=== PATIENT | female | born 1995 | race Caucasian/White ===

== ENCOUNTER → 2021-05-25 | Outpatient (CLI) | payer OTHER ==
[~2021-05-25] MED LIST: COLACE100 MG PO; IBUPROFEN600 MG PO; NORCO 5-325 TA1 EACH PO; PRAMET FA TAB1 EA PO; PREVACID15 MG PO; TIROSINT50 MCG PO; VICODIN 5-3001 EACH PO
== END ==
LOC: EXRD 09:58
DX: R10.9 Unspecified abdominal pain (principal); K76.0 Fatty (change of) liver, not elsewhere classified; R16.1 Splenomegaly, not elsewhere classified
CPT/HCPCS: 76700

== ENCOUNTER 2022-06-01 05:29 | Inpatient (IN) | payer OTHER ==
[~2022-06-01] VITALS: Ht 175.3 cm; Wt 117.9 kg
[~2022-06-01 05:29] MED LIST changes: +AMOX TR-K CLV1 EAC4 PO; +REGLAN10 MG PO
[2022-06-01 06:20] LABS: HEMOGLOBIN 11.7 gm/dl (12.3-15.3); RED BLOOD COUNT 4.07 M/UL (4.00-5.10); WHITE BLOOD COUNT 10.8 K/UL (4.5-11.0)
[2022-06-01] MEDS ORDERED: LEVOTHYROXINE125 MC1 PO (06:24)
[2022-06-01] MEDS ORDERED: PRENATAL VITAM1 EAC3 PO (06:25)
[2022-06-01] MEDS ORDERED: COLACE 100MG C100 MG PO (13:12)
[2022-06-01] MEDS ORDERED: IBUPROFEN600 MG PO (13:12)
[2022-06-02 07:08] LABS: HEMOGLOBIN 11.3 gm/dl (12.3-15.3)
== END 2022-06-02 16:42 | disposition home or self-care (01) | DRG 768 ==
LOC: OB 05:29
PROVIDERS: Obstetrics & Gynecology; ADMIT Obstetrics & Gynecology
PROC: 10E0XZZ Delivery of Products of Conception, External Approach (ICD-10-PCS; principal; 2022-06-01)
PROC: 0UBMXZZ Excision of Vulva, External Approach (ICD-10-PCS; principal; 2022-06-01)
PROC: 10907ZC Drainage of Amniotic Fluid, Therapeutic from Products of Conception, Via Natural or Artificial Opening (ICD-10-PCS; 2022-06-01)
PROC: 4A1HXCZ Monitoring of Products of Conception, Cardiac Rate, External Approach (ICD-10-PCS; 2022-06-01)
PROC: 3E0234Z Introduction of Serum, Toxoid and Vaccine into Muscle, Percutaneous Approach (ICD-10-PCS; 2022-06-01)
DX: O99.214 Obesity complicating childbirth (principal); Z37.0 Single live birth; Z20.822 Contact with and (suspected) exposure to COVID-19; O99.284 Endocrine, nutritional and metabolic diseases complicating childbirth; E66.9 Obesity, unspecified; N90.89 Other specified noninflammatory disorders of vulva and perineum; E03.9 Hypothyroidism, unspecified; Z28.310 Unvaccinated for COVID-19; Z91.040 Latex allergy status; Z3A.37 37 weeks gestation of pregnancy; Z88.2 Allergy status to sulfonamides; Z83.3 Family history of diabetes mellitus; Z81.8 Family history of other mental and behavioral disorders; Z82.49 Family history of ischemic heart disease and other diseases of the circulatory system; Z23 Encounter for immunization; O99.72 Diseases of the skin and subcutaneous tissue complicating childbirth
CPT/HCPCS: 36415; 81001; 82800; 85014; 85018; 85025; 85461; 86850; 86900; 86901; 90715; J1650; J2590; J2790

== ENCOUNTER 2022-06-17 17:14 | Inpatient (IN) | payer OTHER ==
[~2022-06-17] VITALS: Ht 175.3 cm; Wt 112.9 kg
[~2022-06-17 17:14] MED LIST changes: +COLACE 100MG C100 MG PO; +LEVOTHYROXINE125 MCG PO; +PRENATAL VITAM1 EAC3 PO
[2022-06-17 18:46] LABS: HEMOGLOBIN 14.5 gm/dl (12.3-15.3); RED BLOOD COUNT 4.94 M/UL (4.00-5.10); WHITE BLOOD COUNT 14.8 K/UL (4.5-11.0)
[2022-06-17 19:09] LABS: BUN/CREATININE RATIO 15 (0-10)
[2022-06-18 01:29] LABS: HEMOGLOBIN 12.8 gm/dl (12.3-15.3); RED BLOOD COUNT 4.47 M/UL (4.00-5.10); WHITE BLOOD COUNT 11.5 K/UL (4.5-11.0)
[2022-06-18 01:52] LABS: BUN/CREATININE RATIO 14 (0-10)
--- NOTE | 2022-06-18 08:49 | NUR ---
DR NIEVES INFORMED OF PATIENT HAVING LOW POTASSIUM OF 3.4. NO NEW ORDERED GIVEN.
== END 2022-06-19 14:26 | disposition home or self-care (01) | DRG 769 ==
LOC: ER1 17:14 → M/S 22:33 → CDU 22:33 → M/S 06-18 00:27
PROVIDERS: ADMIT Surgery
PROC: 0DTJ4ZZ Resection of Appendix, Percutaneous Endoscopic Approach (ICD-10-PCS; principal; 2022-06-18 09:49)
DX: O99.63 Diseases of the digestive system complicating the puerperium (principal); K35.80 Unspecified acute appendicitis; Z20.822 Contact with and (suspected) exposure to COVID-19; E66.9 Obesity, unspecified; K21.9 Gastro-esophageal reflux disease without esophagitis; Z88.2 Allergy status to sulfonamides; Z91.040 Latex allergy status; Z68.36 Body mass index [BMI] 36.0-36.9, adult
CPT/HCPCS: 0240U; 36415; 80053; 81001; 83690; 84703; 85025; 96374; 99285; J1100; J2001; J2405; J2543; J2704; J3010; Q9967